=== PATIENT | female | born 1960 | race Caucasian/White ===

== ENCOUNTER 2025-05-31 17:20 | Emergency (ER) | payer SELFPAY ==
[2025-05-31 17:22] VITALS: BP 166/92
== END 2025-05-31 17:56 | disposition left against medical advice (07) ==
LOC: EMR 17:20
PROVIDERS: EMERGENCY PHYSICIAN Emergency Medicine
DX: R42 Dizziness and giddiness (principal); Z53.21 Procedure and treatment not carried out due to patient leaving prior to being seen by health care provider
CPT/HCPCS: 93005